=== PATIENT | female | born 2000 | race African-American/Black ===

== ENCOUNTER → 2021-08-04 | Outpatient (CLI) | payer OTHER ==
--- NOTE | 2021-08-04 14:07 | Diagnostic Imaging Report ---
Indication: Possible overuse injury. Left knee pain 3 views of the left knee shows no fracture, dislocation or other abnormality. IMPRESSION: Normal left knee. Dictated by: Dictated on workstation # [id number]
== END ==
LOC: RAD FS 11:12
PROVIDERS: ATTEND Nurse Practitioner
DX: M25.562 Pain in left knee (principal)
CPT/HCPCS: 73562